=== PATIENT | male | born 2000 | race African-American/Black ===

== ENCOUNTER 2023-01-24 07:53 | Emergency (ER) | payer OTHER ==
[~2023-01-24] VITALS: Ht 175.3 cm; Wt 94.7 kg
[2023-01-24] MEDS ORDERED: LIDOCAINE 2% MDV 20ML VIAL SC ONE (08:30)
[2023-01-24] MEDS ORDERED: CEPH500C PO (09:23)
[2023-01-24] MEDS ORDERED: CEPHALEXIN 500 MG CAP PO ONE (09:25)
[2023-01-24 09:35] VITALS: BP 140/92
== END 2023-01-24 09:39 | disposition home or self-care (01) ==
LOC: M ED 07:53
DX: S62.660B Nondisplaced fracture of distal phalanx of right index finger, initial encounter for open fracture (principal); W22.8XXA Striking against or struck by other objects, initial encounter; Y92.009 Unspecified place in unspecified non-institutional (private) residence as the place of occurrence of the external cause

== ENCOUNTER 2023-01-26 15:01 | Emergency (ER) | payer OTHER ==
[~2023-01-26] VITALS: Ht 175.3 cm; Wt 97.8 kg
[2023-01-26 15:01] VITALS: BP 134/75
[~2023-01-26 15:01] MED LIST: CEPH500C PO
== END 2023-01-26 16:02 | disposition home or self-care (01) ==
LOC: M ED 15:01
DX: Z48.00 Encounter for change or removal of nonsurgical wound dressing (principal)